=== PATIENT | female | born 1960 | race Caucasian/White ===

== ENCOUNTER → 2016-10-21 | Outpatient (CLI) | payer BC, OTHER | LOC: RAD 14:05 | DX: Z12.31 Encounter for screening mammogram for malignant neoplasm of breast (principal) ==

== ENCOUNTER → 2018-01-06 | Outpatient (CLI) | payer BC, OTHER | LOC: RAD 10:14 | DX: Z12.31 Encounter for screening mammogram for malignant neoplasm of breast (principal) ==

== ENCOUNTER 2018-10-11 05:30 | Day surgery (SDC) | payer BC, OTHER ==
[~2018-10-11] VITALS: Ht 154.9 cm; Wt 79.4 kg
--- NOTE | ~2018-10-11 | H ---
[facility] [place] [address] HISTORY AND PHYSICAL Name: MARCELINO VAZQUEZ Room #: 150-5 [facility]..#: [id number] Admission: 10/11/18 Attend Phys: José Miguel Doe MD Discharge: Date of : 60 Report #: [id number] THIS REPORT FOR: //name// CC: Crescencio Shukla MD DATE OF SERVICE: 10/11/2018 PREOPERATIVE DIAGNOSIS: Symptomatic incisional hernia, here for repair. HISTORY OF PRESENT ILLNESS: The patient is a 58-year-old who has been complaining of mid abdominal pain. The pain has been there for about a couple of years. She initially was scared to do anything about it. The patient has had a at age 18 through a midline incision. She also then had a laparoscopic cholecystectomy also when she was pretty young. She has pain there all the time. It is sharp in nature. Occasionally, it is crampy. Recently, she has noticed more protrusion at the umbilical area. She has some nausea. She says she has to be careful what she eats. The patient does have some upset stomach. Recently, she has been treated for a sinus infection. No vomiting. She does have bowel movement soon after eating, which is probably secondary to the gallbladder surgery. The patient had a CT scan that showed a hernia at the navel area, which is fat containing. The patient denies any diarrhea. Sometimes, the pain is on her right side of the abdomen. The patient was seen in the office and noted to have a hernia at the umbilical site. There is also weakness in the lower abdominal wall from her prior scar. Likely, the hernia is more complicated than just umbilical hernia. The patient is here for repair, laparoscopically. PAST MEDICAL HISTORY: High blood pressure and arthritis. The patient denies diabetes, denies heart disease, denies lung disease, denies liver disease, denies kidney disease, denies bleeding disorder, denies history of blood clot, denies history of anemia. MEDICATIONS: The patient is on losartan. The patient takes diclofenac for pain in the joint. She was on Augmentin 875 once a day recently. Due to the surgery upcoming, I recommend that she stop the antibiotic, fearing of having organism that is resistant. FAMILY HISTORY: Sister had a blood clot. She has a sister with history of ovarian cancer. 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 Does not smoke, does not drink. [facility] [address] [place] [address] HISTORY AND PHYSICAL Name: MARCELINO VAZQUEZ Room #: 150-5 [facility]..#: [id number] Admission: 10/11/18 Attend Phys: José Miguel Doe MD Discharge: Date of : 60 Report #: [id number] REVIEW OF SYSTEMS: Sinus issue only, which is more of congestion and pressure feeling. No chest pain, shortness of breath or palpitation. No numbness or weakness. PHYSICAL EXAMINATION: VITAL SIGNS: The patient is well-nourished female in no acute distress. She is moderately obese. HEENT: Pupils reactive to light. Extraocular muscles are intact. Oropharynx is clear. NECK: Soft and supple, no masses. LUNGS: Clear to auscultation. HEART: Regular rate and rhythm. No murmur or gallop. ABDOMEN: Soft and nondistended. Again, there is a defect at the umbilicus in the wall and the abdominal wall also feels weak, inferior to this site at her scar, could represent multiple Brazilian cheese defects. There is no abdominal mass or ascites. EXTREMITIES: No cyanosis, clubbing or edema. NEUROLOGIC: The patient moves all extremities well. Sensation is intact. IMPRESSION: The patient with a symptomatic incisional hernia related to prior and also laparoscopic cholecystectomy. The patient does have a defect as seen on CAT scan at the umbilical site. Clinically, I think she has a weak and wall inferiorly at her site. Laparoscopic evaluation is recommended and repair is recommended. Use of mesh was discussed. Risk of bleeding, infection and mesh infection was discussed. The patient understands the procedure and wished to proceed. By: [id number] José Miguel Doe MD /nt
--- NOTE | ~2018-10-11 | O ---
[facility] [place] [address] OPERATIVE REPORT Name: MARCELINO VAZQUEZ Room #: 462-P [facility]..#: [id number] Admission: 10/11/18 Attend Phys: José Miguel Doe MD Discharge: Date of : 60 Report #: [id number] THIS REPORT FOR: //name// CC: José Miguel Shukla PREOPERATIVE DIAGNOSIS: Incisional hernia. POSTOPERATIVE DIAGNOSIS: Incisional hernia. PROCEDURES PERFORMED: Laparoscopic repair of incisional hernia with 4 x 6 inch oval Ventralight mesh with Echo technology. ANESTHESIA: General anesthesia. SURGEON: José Miguel Doe MD COMPLICATIONS: None. ESTIMATED BLOOD LOSS: 5 mL. DESCRIPTION OF PROCEDURE: With the patient under general anesthesia, abdomen was prepped and draped in sterile fashion. Ioban was applied. Timeout was performed. A left upper quadrant cutdown incision was made. Skin and subcutaneous tissue was anesthetized with 0.25% Marcaine, cut down to the fascia was performed to the anterior rectus fascia transversely and divided. 0 Vicryl suture was placed on the fascia edges. Muscle was spread. The posterior fascia was grasped. The posterior fascia was then opened. Free peritoneal cavity was identified here. Again, 0 Vicryl suture was placed on the fascia. An origin balloon trocar was placed through the opening. Two 5 mm trocars were placed in the left lateral abdomen lateral to the inferior epigastric vessel. The patient had adhesion at the umbilical level and also slightly below the umbilicus. This adhesion was taken down. The patient did have a hernia at the umbilical level related to laparoscopic cholecystectomy. The fascia was attenuated inferiorly from her . The laparoscopic repair of the fascia defect was performed. A 4-inch x 6-inch oval Ventralex patch was placed. This had the Echo technology. The balloon trocar was removed. The mesh was placed through that opening in the fascia. The tubing was brought out just above the umbilicus. The Echo was inflated. The mesh was tacked up against the wall with SorbaFix. The balloon scaffold was then removed. A third 5 mm trocar was placed in the right lateral abdomen to tack the left lateral aspect of the mesh. Sorbafix 30 tacks were used. Transfascial sutures were placed in the 12, 3, 6, 9 o'clock position. CVL [place]-Tom[place] suture was used for that. Small 2 mm incision was made for the transfascial sutures. This incorporated the mesh. No bleeding was identified. The inferior epigastric vessel was preserved from harm. The trocar was then removed. The fascia defect at the cutdown site was closed with 0 PDS [id number] x 2 posterior wall and then the anterior wall was closed in a [address] [address] OPERATIVE REPORT Name: TAYLORMARCELINO G Room #: 462-P [facility] M.R.#: [id number] Admission: 10/11/18 Attend Phys: José Miguel Doe MD Discharge: Date of : 60 Report #: [id number] similar manner with 0 PDS [id number] x 2. The skin was closed with 5-0 PDS. Dermabond was used. Band-Aid was placed over the trocar incision and also the transfascial suture incisions. The patient was taken to Recovery Room, tolerated the procedure well. By: [id number] José Miguel Doe MD /nt
[~2018-10-11 05:30] MED LIST: CALCIUM + VITA1 EACH PO; DICLOFENAC SOD100 MG PO; LOSARTAN POTAS100 MG PO; VITAMIN B-12500 MCG PO
[2018-10-11 11:45] VITALS: BP 131/63
[2018-10-11 16:34] VITALS: BP 100/50
[2018-10-11 19:29] VITALS: BP 107/58
[2018-10-11 20:20] VITALS: BP 123/57
[2018-10-12 04:12] VITALS: BP 100/47
[2018-10-12 08:05] VITALS: BP 106/61
[2018-10-12 14:52] VITALS: BP 130/55
[2018-10-12] MEDS ORDERED: HYDROCODONE-AP1 EAC6 PO (15:15)
[2018-10-12] MEDS ORDERED: VALIUM5 MG PO (15:15)
[2018-10-12 15:27] VITALS: BP 106/61
== END 2018-10-12 17:20 | disposition home or self-care (01) ==
LOC: TBA 05:30 → OR 05:30 → TBA 05:31 → OR 07:40 → 4W 16:10 → ENTRNSPT 10-12 16:28 → OR 10-12 17:20
DX: K43.2 Incisional hernia without obstruction or gangrene (principal); I10 Essential (primary) hypertension; M19.90 Unspecified osteoarthritis, unspecified site; Z90.49 Acquired absence of other specified parts of digestive tract; Z98.51 Tubal ligation status; Z98.890 Other specified postprocedural states; Z79.899 Other long term (current) drug therapy; Z80.41 Family history of malignant neoplasm of ovary
CPT/HCPCS: 10047; 50010; 50101; 50249; 50386; 50455; 50555; 50687; 50979; 53065; 53307; 53335; 54022; 54118; 56524; 56525; 56526; 56530; 57092; 62110; 62900; 70005

== ENCOUNTER → 2019-03-13 | Outpatient (CLI) | payer BC, OTHER ==
[~2019-03-13] MED LIST changes: +HYDROCODONE-AP1 EAC6 PO; +VALIUM5 MG PO
== END ==
LOC: RAD 08:21
DX: Z12.31 Encounter for screening mammogram for malignant neoplasm of breast (principal)

== ENCOUNTER → 2019-07-10 | Outpatient (CLI) | payer BC, OTHER | LOC: RAD 15:45 | DX: R05 Cough (principal) ==

== ENCOUNTER → 2021-07-13 | Outpatient (CLI) | payer BC, OTHER | LOC: RAD 09:35 | PROVIDERS: ATTEND Obstetrics & Gynecology | DX: Z12.31 Encounter for screening mammogram for malignant neoplasm of breast (principal) ==